=== PATIENT | female | born 1985 | race Caucasian/White ===

== ENCOUNTER 2017-03-27 20:53 | Emergency (ER) | payer OTHER ==
--- NOTE | ~2017-03-27 | CT4 ---
[facility] A Service of [facility] RADIOLOGY TEXT RESULTS PATIENT: SHANTA PIEDRA LOCATION: [place] : [birth year] UNIT #: [id number] AGE: [address]: Rolando Kaufman MD SEX: F ORDER DR: [id number] [facility] [address] [place], [place] [address] [id number] E MR#: [id number] Acc #: [id number] NAME: SHANTA PIEDRA : 1985 SEX: F STUDY DATE/TIME: 03/27/2017 22:53 UNIT: [facility] ROOM: STUDY DESCRIPTION: CT Abd and Pelv Wo Cont Attending Physician: Rolando Kaufman M.D. Ordering Physician: Rolando Kaufman M.D. Primary Care Physician: Mac Briceño M.D. MEDICAL IMAGING REPORT This report is preliminary unless electronic signature is present EXAM CT scan of the abdomen and pelvis without contrast INDICATION Right-sided abdominal pain, nausea, vomiting and diarrhea for 1-2 months which is worse today. COMPARISON None. TECHNIQUE Axial 5 mm images were obtained through the abdomen and pelvis. Sagittal and coronal reconstructions were generated. This CT exam was performed with one or more of the following radiation dose reduction techniques: automatic exposure control, adjustment of mA and/or kV according to patient size, and iterative reconstruction. FINDINGS The lung bases are clear. The liver, gallbladder, spleen, pancreas, adrenal glands and kidneys are normal. The aorta is normal in size and there is no adenopathy. The bowel is normal. The appendix is not visible but I do not see any evidence of appendicitis. The uterus and adnexal regions and bladder are normal. Bones are unremarkable. IMPRESSION CT scan of the abdomen and pelvis without contrast appears normal. I cannot see the appendix but I do not see any evidence of appendicitis. Dictated by... Gómez Yeboah M.D. [facility] A Service of [facility] RADIOLOGY TEXT RESULTS PATIENT: SHANTA PIEDRA LOCATION: [facility] : [birth year] UNIT #: [id number] AGE: [address]: Rolando Kaufman MD SEX: F ORDER DR: THIS IS AN ELECTRONICALLY VERIFIED REPORT Gómez Yeboah M.D. at 03/28/2017 5:54 AM JAS/janette TD: 03/27/2017 23:32 JOB #: [id number] MEDICAL IMAGING REPORT Page 1 of 1 COPY
[~2017-03-27 20:53] MED LIST: AMOXICILLIN500 M1 PO; DOLOBID500 MG PO; DOXYCYCLINE PO; FLAGYL PO; FLEXERIL PO; IBUPROFEN PO; LORTAB 5/500 TA1 TA1 PO; MACROBID 100 M100 MG PO; NAPROXEN PO; PEN-VEE K PO; PRENATAL VITAMI1 TA3 PO; SUBOXONE 8 MG-1 EAC1 SL; TYLOX1 CAP 5/50 PO; ULTRAM PO; VICODIN 5/500 T1 TAB PO; ZITHROMAX PO
[2017-03-27 21:13] LABS: URINE SOURCE CLEAN CATCH
[2017-03-27 21:17] LABS: BASOPHIL# 0.1 X10e3 (0-0.3); BASOPHIL% 0.9 % (0-2.5); EOSINOPHIL# 0.1 X10e3 (0-0.7); EOSINOPHIL% 1.3 % (0.0-7.0); HEMATOCRIT 45.2 % (35.0-45.0); HEMOGLOBIN 15.1 gm/dL (12.0-16.0); LYMPHOCYTE# 3.5 X10e3 (1.0-3.5); LYMPHOCYTE% 30.1 % (17.0-45.0); MEAN CELL VOLUME 89.7 FL (83-96); MEAN CORPUSCULAR HGB CONC 33.4 g/dL (30-36); MEAN PLATELET VOLUME 8.7 FL (6.5-11.5); MONOCYTE# 0.9 X10e3 (0-1.0); MONOCYTE% 7.9 % (3.0-12.0); NEUTROPHIL# 6.9 X10e3 (1.5-7.1); NEUTROPHIL% 59.8 % (40-75); PLATELET COUNT 275 X10e3 (140-420); RED BLOOD COUNT 5.04 X10e (3.90-5.30); RED CELL DISTRIBUTION WIDTH 13.6 % (11.0-15.5); WHITE BLOOD COUNT 11.5 X10e3 (4.0-10.5)
[2017-03-27 21:18] LABS: URINE APPEARANCE CLEAR; URINE BILIRUBIN NEG (NEG); URINE BLOOD NEG (NEG); URINE COLOR DK YELLOW; URINE GLUCOSE NEG (NEG); URINE KETONE TRACE (NEG); URINE LEUKOCYTE ESTERASE NEG (NEG); URINE NITRATE NEG (NEG); URINE PH 5.5 (5-8); URINE PROTEIN NEG (NEG); URINE SPECIFIC GRAVITY 1.023 (1.003-1.035)
[2017-03-27 21:19] LABS: DIFF IND NO
[2017-03-27 21:20] LABS: CULTURE INDICATED? NO
[2017-03-27 21:46] LABS: ALBUMIN SERUM 4.5 g/dL (3.5-5.0); BILIRUBIN, DIRECT 0.1 mg/dL (0.0-0.2); BILIRUBIN,INDIRECT 0.7 mg/dL (0.0-0.9); BILIRUBIN,TOTAL 0.8 mg/dL (0.2-2.0); BUN/CREATININE RATIO 17.14; CALCIUM SERUM 9.3 mg/dL (8.4-10.2); CREATININE SERUM 0.7 mg/dL (0.6-1.4); GLOM FILT RATE Estimated 116.3 mL/min (>60); POTASSIUM 3.8 mmol/L (3.5-5.1); PROTEIN TOTAL SERUM 7.6 g/dL (6.0-8.3)
== END 2017-03-28 | disposition home or self-care (01) ==
LOC: CED 20:53
DX: R10.11 Right upper quadrant pain (principal); R10.31 Right lower quadrant pain; G89.29 Other chronic pain; F17.200 Nicotine dependence, unspecified, uncomplicated; Z88.5 Allergy status to narcotic agent; Z91.040 Latex allergy status
CPT/HCPCS: 36415; 74176; 80048; 80076; 81003; 82150; 83690; 84703; 85025; 96372; 99284; J2270

== ENCOUNTER 2017-03-31 19:54 | Day surgery (SDC) | payer OTHER ==
[~2017-03-31] VITALS: Ht 154.9 cm; Wt 64.9 kg
--- NOTE | ~2017-03-31 | CO ---
Unit #: [id number] #: [id number] Patient: SHANTA PIEDRA [id number] [address] [place], [place] [address] [id number] I MR#: [id number] NAME: SHANTA PIEDRA ROOM: 01154 Age: 31 Sex: F Admission Date: 04/01/2017 : 1985 Attending Physician: Brandon Weber M.D. Primary Care Physician: Mac Briceño M.D. Consultation Date: 04/01/2017 CONSULTATION REPORT BRIEF HISTORY The patient is a 31-year-old with chronic recurrent right upper quadrant, right flank pain, nausea, and occasional emesis. Normal bowel movements. She was originally worked up about [address] scan, presents with persistent pain. The pain is crampy, intermittent, but now persistent. PAST MEDICAL HISTORY Chronic back pain, anxiety, migraines. PAST SURGICAL HISTORY She had a section. SOCIAL HISTORY Smokes 2 packs per day. No alcohol. FAMILY HISTORY Negative for GI malignancy. HOME MEDICATIONS Gabapentin, Medrol Dosepak. ALLERGIES To codeine, tramadol, and latex. REVIEW OF SYSTEMS No cardiopulmonary complaints at this time. Else, 10 systems reviewed and negative. PHYSICAL EXAMINATION GENERAL: She is awake, alert, appropriate, currently afebrile. HEENT: Unremarkable. NECK: Supple. No JVD. Trachea midline. LUNGS: Clear to auscultation. Bilateral breath sounds symmetric. CARDIOVASCULAR: Regular rate and rhythm. ABDOMEN: Soft. It is mildly tender in the right upper quadrant. No rebound. No masses. No hepatosplenomegaly. No hernias. EXTREMITIES: No clubbing, cyanosis, or edema. DIAGNOSTIC STUDIES LABORATORY RESULTS: Lab show normal white count. Chem 18 is normal. IMAGING STUDIES: CT scan on 03/27/2017 was normal. Unit #: [id number] #: [id number] Patient: SHANTA PIEDRA ASSESSMENT Chronic recurrent right upper quadrant abdominal pain. PLAN Recommend EGD evaluation, possible ulcerative disease. We will plan for ultrasound of right upper quadrant with negative CCK and HIDA scan. I discussed in detail. Dictated by... Deni Cervantes M.D. СВЕТЛАНА/marcie TD: 04/01/2017 15:39 JOB #: [id number] CONSULTATION REPORT Page 1 of 1 X Deni Cervantes MD CONSULTATION REPORT
--- NOTE | ~2017-03-31 | OR ---
Unit #: [id number] #: [id number] Patient: SHANTA PIEDRA [id number] [address] [place], [place] [address] [id number] I MR#: [id number] NAME: SHANTA PIEDRA ROOM: 15578 Date of Procedure: 04/01/2017 Admission Date: 04/01/2017 Surgeon: Art Gregory M.D. : 1985 Attending Physician: Brandon Weber M.D. Primary Care Physician: Mac Briceño M.D. OPERATIVE REPORT PREOPERATIVE DIAGNOSIS Epigastric and right upper quadrant pain. POSTOPERATIVE DIAGNOSIS Epigastric and right upper quadrant pain. PROCEDURES PERFORMED 1. Esophagogastroduodenoscopy. 2. Biopsy of antrum for Helicobacter pylori testing. ANESTHESIA Monitored anesthesia care. FINDINGS The patient was found to have mild gastritis. SPECIMENS Sent to pathology. COMPLICATIONS None apparent. CONDITION The patient tolerated the procedure well. INDICATIONS FOR PROCEDURE The patient is a 31-year-old white female, who presents at this time with epigastric and right upper quadrant pain. She has been in the emergency room twice. CT scan of the abdomen and pelvis showed no significant abnormality. She presents at this time for evaluation by upper endoscopy. Her ultrasound of the gallbladder was normal as well. DESCRIPTION OF PROCEDURE After obtained informed consent, the patient was brought to the endoscopy suite and after adequate monitored anesthesia care, had the endoscope placed through the mouth into the upper esophagus under direct vision. It was advanced to the second portion of the duodenum without difficulty with the lumen always in view. The duodenum was within normal limits as was the duodenal bulb. The pylorus opened normally. There was some mild distal gastritis present and a biopsy was obtained for Helicobacter pylori testing. On retroflexion back to the GE junction, there was no obvious abnormality seen. No hiatal hernia was seen. No abnormality was seen in Unit #: [id number] #: [id number] Patient: SHANTA PIEDRA the proximal third, middle third, or incisura. On pulling back above the GE junction, the patient was found to have no stenosis, stricture, or neoplasm seen. The remaining portion of the esophagus was within normal limits. There was no significant esophagitis. The patient went from the endoscopy suite to recovery area in stable condition. RECOMMENDATIONS High-fiber diet. Dictated by... Dixie Dupont/marcie TD: 04/01/2017 18:49 JOB #: [id number] OPERATIVE REPORT Page 1 of 1 X Art Gregory MD X PROCEDURE OPERATIVE NOTE
--- NOTE | ~2017-03-31 | US67 ---
[facility] A Service of [facility] RADIOLOGY TEXT RESULTS PATIENT: SHANTA PIEDRA LOCATION: [facility] [address]-16 : [birth year] UNIT #: [id number] AGE: [address]: Brandon Weber MD SEX: F ORDER DR: [id number] [facility] [address] [place], [place] [address] [id number] I MR#: [id number] Acc #: [id number] NAME: SHANTA PIEDRA : 1985 SEX: F STUDY DATE/TIME: 04/01/2017 7:40 UNIT: [facility] ROOM: 20271 STUDY DESCRIPTION: US Gallbladder Attending Physician: Brandon Weber M.D. Ordering Physician: Jaylen Greenberg D.O. Primary Care Physician: Mac Briceño M.D. MEDICAL IMAGING REPORT This report is preliminary unless electronic signature is present EXAM Gallbladder ultrasound, 04/01 INDICATION Abdominal pain for about 8 months. Pain is diffuse across the abdomen. FINDINGS Sonographic evaluation is performed of the right upper quadrant in multiple planes. Comparison is made with CT abdomen from 03/27/2017. Pancreas is largely obscured by bowel gas today. Main portal vein is patent by Doppler. Liver parenchyma is normal. Right kidney is morphologically normal and nonobstructed. Gallbladder is normal. No gallstones are seen. There is no gallbladder wall thickening. Common duct is normal at 5.0 mm internal diameter. No free fluid. IMPRESSION The exam is somewhat degraded by bowel gas. The pancreas is largely obscured. The exam is otherwise within normal limits. Dictated by... Ovi Bach Jr., M.D. THIS IS AN ELECTRONICALLY VERIFIED REPORT Ovi Bach Jr., M.D. at 04/01/2017 5:18 PM RICHMOND/guero TD: 04/01/2017 12:34 JOB #: [id number] MEDICAL IMAGING REPORT Page 1 of 1 COPY
[2017-03-31 20:43] LABS: BASOPHIL# 0.1 X10e3 (0-0.3); BASOPHIL% 0.4 % (0-2.5); EOSINOPHIL% 0.1 % (0.0-7.0); HEMATOCRIT 39.9 % (35.0-45.0); HEMOGLOBIN 13.4 gm/dL (12.0-16.0); LYMPHOCYTE% 17.2 % (17.0-45.0); MEAN CELL VOLUME 90.4 FL (83-96); MEAN CORPUSCULAR HEMOGLOBIN 30.2 PG (28-34); MEAN CORPUSCULAR HGB CONC 33.5 g/dL (30-36); MEAN PLATELET VOLUME 8.6 FL (6.5-11.5); MONOCYTE# 1.1 X10e3 (0-1.0); MONOCYTE% 8.9 % (3.0-12.0); NEUTROPHIL# 8.7 X10e3 (1.5-7.1); NEUTROPHIL% 73.4 % (40-75); PLATELET COUNT 250 X10e3 (140-420); RED BLOOD COUNT 4.41 X10e (3.90-5.30); RED CELL DISTRIBUTION WIDTH 13.9 % (11.0-15.5); WHITE BLOOD COUNT 11.8 X10e3 (4.0-10.5)
[2017-03-31 20:44] LABS: DIFF IND NO
[2017-03-31 21:11] LABS: ALBUMIN SERUM 4.1 g/dL (3.5-5.0); ALKALINE PHOSPHATASE 45 U/L (32-92); ALT (SGPT) 14 U/L (10-40); AST (SGOT) 14 U/L (10-42); BILIRUBIN,TOTAL 0.2 mg/dL (0.2-2.0); BLOOD UREA NITROGEN 18 mg/dL (9-23); BUN/CREATININE RATIO 25.71; CALCIUM SERUM 8.9 mg/dL (8.4-10.2); CARBON DIOXIDE 26 mmol/L (22-31); CHLORIDE 105 mmol/L (100-111); CREATININE SERUM 0.7 mg/dL (0.6-1.4); GLOM FILT RATE Estimated 116.3 mL/min (>60); GLUCOSE FASTING 96 mg/dL (70-110); LIPASE 20 U/L (22-51); POTASSIUM 3.5 mmol/L (3.5-5.1); PROTEIN TOTAL SERUM 6.9 g/dL (6.0-8.3); SODIUM 137 mmol/L (135-145)
[2017-03-31 21:13] LABS: BILIRUBIN, DIRECT <0.1 mg/dL (0.0-0.2); BILIRUBIN,INDIRECT 0.1 mg/dL (0.0-0.9)
[2017-03-31 22:30] LABS: URINE SOURCE CLEAN CATCH
[2017-03-31 22:35] LABS: URINE APPEARANCE CLOUDY; URINE BILIRUBIN NEG (NEG); URINE BLOOD NEG (NEG); URINE COLOR YELLOW; URINE GLUCOSE NEG (NEG); URINE KETONE TRACE (NEG); URINE LEUKOCYTE ESTERASE NEG (NEG); URINE NITRATE NEG (NEG); URINE PH 5.5 (5-8); URINE PROTEIN NEG (NEG); URINE SPECIFIC GRAVITY 1.032 (1.003-1.035)
[2017-03-31 22:38] LABS: CULTURE INDICATED? NO
[2017-04-01 03:30] LABS: BASOPHIL# 0.1 X10e3 (0-0.3); BASOPHIL% 0.8 % (0-2.5); EOSINOPHIL% 0.2 % (0.0-7.0); HEMATOCRIT 37.8 % (35.0-45.0); HEMOGLOBIN 12.5 gm/dL (12.0-16.0); LYMPHOCYTE# 3.3 X10e3 (1.0-3.5); LYMPHOCYTE% 31.4 % (17.0-45.0); MEAN CELL VOLUME 91.2 FL (83-96); MEAN CORPUSCULAR HEMOGLOBIN 30.2 PG (28-34); MEAN CORPUSCULAR HGB CONC 33.1 g/dL (30-36); MONOCYTE# 0.9 X10e3 (0-1.0); MONOCYTE% 8.9 % (3.0-12.0); NEUTROPHIL# 6.3 X10e3 (1.5-7.1); NEUTROPHIL% 58.7 % (40-75); PLATELET COUNT 218 X10e3 (140-420); RED BLOOD COUNT 4.15 X10e (3.90-5.30); RED CELL DISTRIBUTION WIDTH 13.8 % (11.0-15.5); WHITE BLOOD COUNT 10.7 X10e3 (4.0-10.5)
[2017-04-01 03:33] LABS: DIFF IND NO
[2017-04-01 03:52] LABS: ALBUMIN SERUM 3.6 g/dL (3.5-5.0); BILIRUBIN,TOTAL 0.3 mg/dL (0.2-2.0); CALCIUM SERUM 8.3 mg/dL (8.4-10.2); CREATININE SERUM 0.6 mg/dL (0.6-1.4); GLOM FILT RATE Estimated 122.3 mL/min (>60); POTASSIUM 3.5 mmol/L (3.5-5.1)
== END 2017-04-01 | disposition home or self-care (01) ==
LOC: CED 19:54 → CEDOF 04-01 02:36 → CED 04-01 02:36 → CSUR 04-01 08:40
PROVIDERS: Emergency Medicine
DX: K29.70 Gastritis, unspecified, without bleeding (principal); F41.9 Anxiety disorder, unspecified; F17.210 Nicotine dependence, cigarettes, uncomplicated; R10.11 Right upper quadrant pain; G89.29 Other chronic pain; Z79.899 Other long term (current) drug therapy; Z88.6 Allergy status to analgesic agent; Z88.5 Allergy status to narcotic agent; Z91.040 Latex allergy status
CPT/HCPCS: 36415; 76705; 80048; 80053; 80076; 81003; 83690; 84703; 85025; 85379; 87077; 96374; 99284; J1170; J1885; J2250; J3010

== ENCOUNTER 2017-04-02 21:20 | Emergency (ER) | payer OTHER ==
[~2017-04-02] VITALS: Ht 154.9 cm; Wt 64.9 kg
[2017-04-02 22:23] LABS: BASOPHIL# 0.1 X10e3 (0-0.3); BASOPHIL% 0.8 % (0-2.5); DIFF IND NO; EOSINOPHIL# 0.1 X10e3 (0-0.7); EOSINOPHIL% 1.3 % (0.0-7.0); HEMATOCRIT 41.9 % (35.0-45.0); LYMPHOCYTE# 3.8 X10e3 (1.0-3.5); LYMPHOCYTE% 33.1 % (17.0-45.0); MEAN CELL VOLUME 90.3 FL (83-96); MEAN CORPUSCULAR HEMOGLOBIN 30.1 PG (28-34); MEAN CORPUSCULAR HGB CONC 33.3 g/dL (30-36); MEAN PLATELET VOLUME 8.8 FL (6.5-11.5); MONOCYTE% 8.7 % (3.0-12.0); NEUTROPHIL# 6.4 X10e3 (1.5-7.1); NEUTROPHIL% 56.1 % (40-75); PLATELET COUNT 253 X10e3 (140-420); RED BLOOD COUNT 4.64 X10e (3.90-5.30); RED CELL DISTRIBUTION WIDTH 13.7 % (11.0-15.5); WHITE BLOOD COUNT 11.5 X10e3 (4.0-10.5)
[2017-04-02 22:51] LABS: ALBUMIN SERUM 4.6 g/dL (3.5-5.0); BILIRUBIN, DIRECT 0.1 mg/dL (0.0-0.2); BILIRUBIN,INDIRECT 0.3 mg/dL (0.0-0.9); BILIRUBIN,TOTAL 0.4 mg/dL (0.2-2.0); BUN/CREATININE RATIO 24.28; CREATININE SERUM 0.7 mg/dL (0.6-1.4); GLOM FILT RATE Estimated 116.3 mL/min (>60); POTASSIUM 3.2 mmol/L (3.5-5.1); PROTEIN TOTAL SERUM 7.5 g/dL (6.0-8.3)
== END 2017-04-02 23:54 | disposition home or self-care (01) ==
LOC: CED 21:20
PROVIDERS: Emergency Medicine
DX: R10.9 Unspecified abdominal pain (principal); F17.200 Nicotine dependence, unspecified, uncomplicated; Z88.5 Allergy status to narcotic agent; Z91.040 Latex allergy status; Z88.6 Allergy status to analgesic agent
CPT/HCPCS: 36415; 80048; 80076; 82150; 83690; 85025; 99284